=== PATIENT | female | born 1970 | race African-American/Black ===

== ENCOUNTER 2023-07-22 18:17 | Emergency (ER) | payer OTHER ==
--- OUTSIDE RECORDS SUMMARY | 2023-07-22 18:24 | XMS REPORT | Continuity of Care Document ---
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 [facility] Respitory Rate 2018-12-01 15:03:00 [facility] Systolic (mm Hg) 2018-12-01 15:03:00 Jeff rial [place] Diastolic (mm Hg) 2018-12-01 15:03:00 Mem orial [facility] Heart Rate 2018-12-01 15:03:00 [facility] [place] Temperature Oral (F) 2018-12-01 15:03:00 98.8 F [facility] Heart Rate 2018-12-01 10:02:00 [facility] [place] Systolic (mm Hg) 2018-12-01 10:02:00 Jeff rial [place] Diastolic (mm Hg) 2018-12-01 10:02:00 Mem orial [place] Respitory Rate 2018-12-01 10:02:00 [facility] [place] Temperature Oral (F) 2018-12-01 10:02:00 98.2 F [facility] [place] Weight 2018-11-28 07:13:00 [facility] BMI Calculated 2018-11-28 07:13:00 Francoise Singh Height 2018-11-28 07:13:00 160.02 cm [facility] Procedures Procedure Date / Time Performed Performing Clinician Sourtrevor e MAMMO, screening, 2022-07-10 00:00:00 [facility], bilateral [facility] Program Plan of Care Planned Activity Planned Date Details Comments Source Diagnostic Test 2022-10-31 HbA1c (hemoglobin [place] [facility] 00:00:00 A1c), blood [code Health Out reach = HbA1c Program (hemoglobin A1c), blood] Diagnostic Test 2022-10-31 CMP, serum or [facility] Pending 00:00:00 plasma [code = Health Outrea ch CMP, serum or Program plasma] Diagnostic Test 2022-10-31 microalbumin/creat [place] brick tosser [facility] Pending 00:00:00 inine, mass ratio, [facility] urine [code = Program microalbumin/creat inine, mass ratio, urine] Diagnostic Test 2022-10-31 glucose, [facility] iscopal Pending 00:00:00 fingerstick, blood [facility] [code = glucose, Program fingerstick, blood] Encounters Start End Encounter Admission Attending Care Care Encounter Source Date/Time Date/Time Type Type Clinicians Facility Department ID 2023-05-11 2023-05-11 Outpatient Nguyen_Jamieo [facility] [id number] [place] 00:00:00 00:00:00 [facility] 2023-01-19 2023-01-19 Outpatient Nguyen_Tho [facility] [id number] [place] 00:00:00 00:00:00 [facility]12 [facility] 2023-01-19 2023-01-19 Outpatient Ngen_o [facility] [id number] [place] 00:00:00 00:00:00 0502 [facility] 2022-12-15 2022-12-15 Outpatient Nguyen_o [facility] [address] [place] 00:00:00 00:00:00 0205 [facility] 2022-12-12 2022-12-12 Outpatient Nguyen_Tho [facility] [id number] [place] 00:00:00 00:00:00 0202 [facility] 2022-11-29 2022-11-29 Outpatient Nguyen_Tho [facility] [id number] [place] 00:00:00 00:00:00 0120 [facility] 2022-11-22 2022-11-22 Outpatient Nguyen_Tho [facility] [id number] [place] 00:00:00 00:00:00 0113 [facility] 2022-11-10 2022-11-10 Outpatient FERGUSON_JO [facility] 831 [place] 00:00:00 00:00:00 HN 0101 [facility] 2022-11-01 2022-11-01 Outpatient FERGUSON_JO OK[facility]OP [facility] [id number] [place] 00:00:00 00:00:00 HN 1227 [facility] 2022-10-31 2022-10-31 Outpatient FERGUSON_JO OK[facility]OP [facility] 831 [place] 00:00:00 00:00:00 HN 1222 [facility] 2022-10-31 2022-10-31 [facility] [place] - [id number] M [place] 00:00:00 00:00:00 Michael Matthew APRN-ASSISTANT SOFTBALL COACH-C: [facility] 1700 HOP - [facility], [facility], [facility] [address] Progr pili , Ph. 2022-09-03 2022-09-03 Outpatient FERGUSON_JO OKHOP [facility] 831 [place] 00:00:00 00:00:00 HN 1025 [facility] 2022-09-03 2022-09-03 Outpatient FERGUSON_JO OKHOP [facility] 831 [place] 00:00:00 00:00:00 HN 1216 [facility] 2022-08-29 2022-08-29 Outpatient OLIVERIO HAMILTON [facility] [id number] [place] 08:43:00 08:43:00 DAYDAY [id number] [facility] 2022-08-25 2022-08-25 Emergency ER KATHY, [facility] [id number] [place] 21:32:00 22:48:00 NUVIA -[id number] [facility] 2022-08-12 2022-08-12 Outpatient FERGUSON_JO OKHOP [facility] 831 [place] 00:00:00 00:00:00 HN 1003 [facility] 2022-08-12 2022-08-12 Dayday Darby [facility] [place] - [id number] [place] 00:00:00 00:00:00 Michael Hamilton MD: [id number] [facility] Epis copywriter [address] [facility] - [facility] [address], [facility], [facility] Program [phone] , Ph. 2022-08-05 2022-08-05 Outpatient FERGUSON_JO OKHOP [facility] 831 [place] 00:00:00 00:00:00 HN 0926 [facility] 2022-08-02 2022-08-02 Outpatient FERGUSON_JO OKHOP [facility] 831 [place] 00:00:00 00:00:00 HN 0923 [facility] 2022-08-01 2022-08-01 Outpatient FERGUSON_JO OKHOP [facility] 831 [place] 00:00:00 00:00:00 HN 0922 [facility] 2022-08-01 2022-08-01 [facility] [place] - [id number] [place] 00:00:00 00:00:00 Michael Matthew MANAGER SERVICE DESK-ASSISTANT SOFTBALL COACH-C: [facility] [address] [facility] [address] Aurelio alejandre , Ph. 2022-07-24 2022-07-24 Outpatient MILLER AMARAL [facility] [id number] [place] 10:33:00 10:33:00 -[id number] [facility] 2022-07-21 2022-07-21 Outpatient FERGUSON_JO MEHOP MEHOP 831 [place] 00:00:00 00:00:00 HN 0911 [facility] 2022-07-16 2022-07-16 Outpatient FERGUSON_JO MEHOP MEHOP 831 [place] 00:00:00 00:00:00 HN 0906 [facility] 2022-07-11 2022-07-11 Outpatient FERGUSON_JO MEHOP [facility] 831 [place] 00:00:00 00:00:00 HN 0901 [facility] 2022-07-10 2022-07-10 Outpatient FERGUSON_JO MEHOP [facility] 831 [place] 00:00:00 00:00:00 HN 0831 [facility] 2022-07-10 2022-07-10 [facility] [place] - [id number] [place] 00:00:00 00:00:00 Michael Matthew APRN-ASSISTANT SOFTBALL COACH-C: [facility] [address] [facility] [address] Aurelio alejandre , Ph. 2022-06-27 2022-06-27 Outpatient FERGUSON_JO MEHOP [facility] 831 [place] 00:00:00 00:00:00 HN 0818 [facility] 2022-06-13 2022-06-13 Outpatient FERGUSON_JO MEHOP MEHOP 831 [place] 00:00:00 00:00:00 HN 0804 [facility] 2020-05-29 2020-05-29 Emergency ER OWO, TOKS [facility] [id number] [place] 12:53:00 15:11:00 -[id number] [facility] 2018-12-18 2018-12-19 Outpatient [facility] [id number] [id number] Memoria 15:22:00 05:59:00 [place] 00 [facility] 2018-12-18 2018-12-19 Outpatient [facility]Flavo [facility] 4731 [id number] Memoria 15:22:00 05:59:00 [place] 00 [facility] 2018-12-18 2018-12-18 Outpatient Person, [facility] [id number] 09:22:00 23:59:00 Edenilsonjose Flowersel 2018-11-28 2018-12-01 Inpatient [facility] [id number] Memoria 07:13:00 21:00:[address] 2018-11-28 2018-12-01 Inpatient nullFlavo [facility] [id number] [facility] 07:13:00 21:00:[address] 2018-11-28 2018-12-01 Outpatient Person, [facility] [id number] 01:13:00 15:00:00 Edenilson Dagmar Steven 2018-11-27 2018-11-27 Emergency TR WESLEY, [facility] [id number] [place] 20:25:00 23:59:00 SOO -[id number] [facility] 2017-06-19 2017-06-19 Emergency ER OWO, TOKS [facility] [id number] [place] 09:53:00 10:40:00 -[id number] [facility] 2017-05-11 2017-05-11 Emergency ER WESLEY, [facility] [id number] [place] 00:24:00 01:55:00 SOO -[id number] [facility] 2016-11-04 2016-11-04 Emergency ER ROY, [facility] [id number] [place] 11:33:00 12:21:00 WAS -[id number] [facility] 2015-09-10 2015-09-10 Emergency ER , [facility] [id number] [place] 12:14:00 13:05:00 WAS -[id number] [facility] 2015-05-14 2015-05-14 Emergency ER , [facility] [id number] [place] 12:21:00 13:30:00 WAS -[id number] [facility] 2013-03-29 2013-03-29 Emergency ER JANES, [facility] [id number] [place] 15:28:00 17:36:00 KOSTA -[id number] [facility] 2013-01-10 2013-01-10 Emergency ER RADHA, [facility] [id number] [place] 09:58:00 11:14:00 SUSU -[id number] [facility] 2002-10-06 2002-10-06 Outpatient EL RACHAEL, [facility] [id number] [place] 08:13:00 08:13:00 ROSA MARIA -[id number] [facility] 1999-08-27 1999-08-27 Emergency ER JAVI, [facility] [id number] [place] 12:09:00 17:10:00 SOFIA -[id number] [facility] Results Test Description Test Time Test Comments Results Result Comments Source Glucose [Mass/volume] in Capillary blood 2022-10-31 12:43:34 Test Item Value Reference Range Interpretation Comme nts Blood Glucose: mg/dl (test code = Blood Glucose: mg/dl) 115 [facility], [id number] 00:00:00 Test Item Value Reference Range Interpretation Comments Interpretation and review of laboratory note results (test code = 93763-0) Report (test code = 15992-7) . [facility] Centerdiabetes patient [id number] 00:00:00 Test Item Value Reference Range Interpretation Comments pdf (test code = pdf) not applicable [facility] CenterHemoglobin A1c/Hemoglobin.total in [id number] 00:00:00 Test Item Value Reference Range Interpretation Comments Hemoglobin A1c/Hemoglobin.total in 13.9 % 4.8-5.6 H Blood (test code = 4548-4) [facility] CenterGlucose [Mass/volume] in Capillary [id number] 16:02:24 Test Item Value Reference Range Interpretation Comments Blood Glucose: mg/dl (test code = Blood 405 Glucose: mg/dl) [facility] [Mass/volume] in Capillary [id number] 16:02:24 Test Item Value Reference Range Interpretation Comments Blood Glucose: mg/dl (test code = Blood 405 Glucose: mg/dl) [facility] CenterCB W Auto Differential panel - Blood 2022-07-11 00:00:00 Test Item Value Reference Range Interpretation Comments Leukocytes [#/volume] in Blood 4.2 x10e3/uL 3.4-10.8 by Automated count (test code = 6690-2) Erythrocytes [#/volume] in 4.74 x10e6/uL 3.77-5.28 Blood by Automated count (test code = 789-8) Hemoglobin [Mass/volume] in 13.5 g/dL 11.1-15.9 Blood (test code = 718-7) Hematocrit [Volume Fraction] of 42.3 % 34.0-46.6 Blood by Automated count (test code = 4544-3) Erythrocyte mean corpuscular 89 fL 79-97 volume [Entitic volume] by Automated count (test code = 787-2) Erythrocyte mean corpuscular 28.5 pg 26.6-33.0 hemoglobin [Entitic mass] by Automated count (test code = 785-6) Erythrocyte mean corpuscular 31.9 g/dL 31.5-35.7 hemoglobin concentration [Mass/volume] by Automated count (test code = 786-4) Erythrocyte distribution width 12.8 % 11.7-15.4 [Ratio] by Automated count (test code = 788-0) Platelets [#/volume] in Blood 199 x10e3/uL 150-450 by Automated count (test code = 777-3) Neutrophils/100 leukocytes in 49 % not estab. Blood by Automated count (test code = 770-8) Lymphocytes/100 leukocytes in 43 % not estab. Blood by Automated count (test code = 736-9) Monocytes/100 leukocytes in 6 % not estab. Blood by Automated count (test code = 5905-5) Eosinophils/100 leukocytes in 1 % not estab. Blood by Automated count (test code = 713-8) Basophils/100 leukocytes in 1 % not estab. Blood by Automated count (test code = 706-2) immature cells (test code = tare weigher immature cells) Neutrophils [#/volume] in Blood 2.0 x10e3/uL 1.4-7.0 by Automated count (test code = 751-8) Lymphocytes [#/volume] in Blood 1.8 x10e3/uL 0.7-3.1 by Automated count (test code = 731-0) Monocytes [#/volume] in Blood 0.3 x10e3/uL 0.1-0.9 by Automated count (test code = 742-7) Eosinophils [#/volume] in Blood 0.1 x10e3/uL 0.0-0.4 by Automated count (test code = 711-2) Basophils [#/volume] in Blood 0.0 x10e3/uL 0.0-0.2 by Automated count (test code = 704-7) Immature granulocytes/100 0 % not estab. leukocytes in Blood by Automated count (test code = 45238-1) Immature granulocytes 0.0 x10e3/uL 0.0-0.1 [#/volume] in Blood by Automated count (test code = 78967-5) Nucleated erythrocytes/100 tare weigher leukocytes [Ratio] in Blood by Automated count (test code = 21287-4) Morphology [Interpretation] in tare weigher Blood Narrative (test code = 92229-6) [facility] ProgramComprehensive metabolic 2000 panel - Serum or [id number] 00:00:00 Test Item Value Reference Range Interpretation Comments Glucose [Mass/volume] in Serum 524 mg/dL 65-99 H or Plasma (test code = 2345-7) Urea nitrogen [Mass/volume] in 9 mg/dL 6-24 Serum or Plasma (test code = 3094-0) Creatinine [Mass/volume] in 0.97 mg/dL 0.57-1.00 Serum or Plasma (test code = 2160-0) eGFR (test code = eGFR) 70 mL/min/1.73 >59 Urea nitrogen/Creatinine [Mass 9 9-23 Ratio] in Serum or Plasma (test code = 3097-3) Sodium [Moles/volume] in Serum 135 mmol/L 134-144 or Plasma (test code = 2951-2) Potassium [Moles/volume] in 4.1 mmol/L 3.5-5.2 Serum or Plasma (test code = 2823-3) Chloride [Moles/volume] in 95 mmol/L 96-106 L Serum or Plasma (test code = 5-0) Carbon dioxide, total 25 mmol/L 20-29 [Moles/volume] in Serum or Plasma (test code = 2027-9) Calcium [Mass/volume] in Serum 9.9 mg/dL 8.7-10.2 or Plasma (test code = 22839-2) Protein [Mass/volume] in Serum 7.3 g/dL 6.0-8.5 or Plasma (test code = 2885-2) Albumin [Mass/volume] in Serum 4.7 g/dL 3.8-4.9 or Plasma (test code = 1751-7) Globulin [Mass/volume] in 2.6 g/dL 1.5-4.5 Serum by calculation (test code = 97072-7) Albumin/Globulin [Mass Ratio] 1.8 1.2-2.2 in Serum or Plasma (test code = 1759-0) Bilirubin.total [Mass/volume] 0.4 mg/dL 0.0-1.2 in Serum or Plasma (test code = 1974-2) Alkaline phosphatase 146 IU/L 44-121 H [Enzymatic activity/volume] in Serum or Plasma (test code = 6768-6) Aspartate aminotransferase 28 IU/L 0-40 [Enzymatic activity/volume] in Serum or Plasma (test code = 1920-8) Alanine aminotransferase 51 IU/L 0-32 H [Enzymatic activity/volume] in Serum or Plasma (test code = 1742-6) [facility] Center[facility] 1996 panel - Serum or Plasma 2022-07-11 00:00:00 Test Item Value Reference Range Interpretation Comments Cholesterol [Mass/volume] in Serum 182 mg/dL 100-199 or Plasma (test code = 3-3) Triglyceride [Mass/volume] in Serum 123 mg/dL 0-149 or Plasma (test code = 2571-8) Cholesterol in HDL [Mass/volume] in 57 mg/dL >39 Serum or Plasma (test code = 2085-9) Cholesterol in VLDL [Mass/volume] 22 mg/dL 5-40 in Serum or Plasma by calculation (test code = 87109-1) Cholesterol in LDL [Mass/volume] in 103 mg/dL 0-99 H Serum or Plasma by calculation (test code = 22005-5) Laboratory comment [Text] in Report tare weigher Narrative (test code = 12095-3) [facility]25-Hydroxyvitamin D3+25- Hydroxyvitamin D2 [Mass/volume] in Serum or [id number] 00:00:00 Test Item Value Reference Range Interpretation Comments 25-Hydroxyvitamin 14.2 NG/mL 30.0-100.0 L D3+25-Hydroxyvitamin D2 [Mass/volume] in Serum or Plasma (test code = 69918-9) [facility] CenterThyrotropin [Units/volume] in Serum or Plasma by Detection limit <= 0.005 mIU/[id number] 00:00:00 Test Item Value Reference Range Interpretation Comments Thyrotropin [Units/volume] in 0.957 uIU/mL 0.450-4.500 Serum or Plasma by Detection limit <= 0.005 mIU/L (test code = 86311-9) [facility] CenterInsulin [Units/volume] in Serum or [id number] 00:00:00 Test Item Value Reference Range Interpretation Comments Insulin [Units/volume] in Serum 23.8 uIU/mL 2.6-24.9 or Plasma (test code = 42751-2) [facility] CenterUrinalysis macro (dipstick) panel - [id number] 17:12:40 Test Item Value Reference Range Interpretation Comments Leukocytes (test code = Leukocytes) - Nitrite (test code = Nitrite) - Urobilinogen (test code = - Urobilinogen) Protein (test code = Protein) - pH (test code = pH) 7.0 Blood (test code = Blood) - Specific [place] (test code = Specific 1.015 [place]) Ketone (test code = Ketone) - Bilirubin (test code = Bilirubin) - Glucose (test code = Glucose) 3+ Appearance (test code = Appearance) clear Color (test code = Color) yellow [facility] CenterUrinalysis macro (dipstick) panel - [id number] 17:12:40 Test Item Value Reference Range Interpretation Comments Leukocytes (test code = Leukocytes) - Nitrite (test code = Nitrite) - Urobilinogen (test code = - Urobilinogen) Protein (test code = Protein) - pH (test code = pH) 7.0 Blood (test code = Blood) - Specific [place] (test code = Specific 1.015 [place]) Ketone (test code = Ketone) - Bilirubin (test code = Bilirubin) - Glucose (test code = Glucose) 3+ Appearance (test code = Appearance) clear Color (test code = Color) yellow [facility] CenterCHEM [id number] 11:32:00 Test Item Value Reference Range Interpretation Comments eGFR (test code = eGFR) 96 [facility]2019-01-21 11:32:00 Test Item Value Reference Range Interpretation Comments CO2 (test code = CO2) 25 24-32 [facility]2019-01-21 11:32:00 Test Item Value Reference Range Interpretation Comments Chloride Lvl (test code = Chloride Lvl) 106 95-109 [facility]2019-01-21 11:32:00 Test Item Value Reference Range Interpretation Comments Calcium Lvl (test code = Calcium Lvl) 8.7 8.5-10.5 [facility]2019-01-21 11:32:00 Test Item Value Reference Range Interpretation Comments BUN (test code = BUN) 6 7-22 [facility]2019-01-21 11:32:00 Test Item Value Reference Range Interpretation Comments Glucose Lvl (test code = Glucose Lvl) 98 70-99 [facility]2019-01-21 11:32:00 Test Item Value Reference Range Interpretation Comments Potassium Lvl (test code = Potassium 3.6 3.5-5.1 Lvl) [facility]2019-01-21 11:32:00 Test Item Value Reference Range Interpretation Comments Creatinine Lvl (test code = Creatinine 0.83 0.50-1.40 Lvl) [facility]2019-01-21 11:32:00 Test Item Value Reference Range Interpretation Comments Sodium Lvl (test code = Sodium Lvl) 141 135-145 [facility]2019-01-21 11:32:00 Test Item Value Reference Range Interpretation Comments AGAP (test code = AGAP) 13.6 10.0-20.0 [facility] CenterIaghlgpBDQGBKLGLF2733-54-35 11:32:00 Test Item Value Reference Range Interpretation Comments MPV (test code = MPV) 8.3 7.4-10.4 [facility]2019-01-21 11:32:00 Test Item Value Reference Range Interpretation Comments eGFR (test code = eGFR) 96 [facility]2019-01-21 11:32:00 Test Item Value Reference Range Interpretation Comments CO2 (test code = CO2) 25 24-32 [facility]2019-01-21 11:32:00 Test Item Value Reference Range Interpretation Comments Chloride Lvl (test code = Chloride Lvl) 106 95-109 [facility]2019-01-21 11:32:00 Test Item Value Reference Range Interpretation Comments Calcium Lvl (test code = Calcium Lvl) 8.7 8.5-10.5 [facility]2019-01-21 11:32:00 Test Item Value Reference Range Interpretation Comments BUN (test code = BUN) 6 7-22 [facility]2019-01-21 11:32:00 Test Item Value Reference Range Interpretation Comments Glucose Lvl (test code = Glucose Lvl) 98 70-99 [facility] CenterGaxaruwFYMGLZRIUA7673-46-14 11:32:00 Test Item Value Reference Range Interpretation Comments RDW (test code = RDW) 14.2 11.5-14.5 [facility]2019-01-21 11:32:00 Test Item Value Reference Range Interpretation Comments Potassium Lvl (test code = Potassium 3.6 3.5-5.1 Lvl) [facility]2019-01-21 11:32:00 Test Item Value Reference Range Interpretation Comments Creatinine Lvl (test code = Creatinine 0.83 0.50-1.40 Lvl) [facility]2019-01-21 11:32:00 Test Item Value Reference Range Interpretation Comments Sodium Lvl (test code = Sodium Lvl) 141 135-145 [facility]2019-01-21 11:32:00 Test Item Value Reference Range Interpretation Comments AGAP (test code = AGAP) 13.6 10.0-20.0 [facility] CenterSwvbcomKMVIOEXQSI5492-14-92 11:32:00 Test Item Value Reference Range Interpretation Comments MPV (test code = MPV) 8.3 7.4-10.4 [facility] CenterShoobqdPRZXRXHLPV0588-71-69 11:32:00 Test Item Value Reference Range Interpretation Comments RDW (test code = RDW) 14.2 11.5-14.5 [facility] CenterWutdgdlGWOLTEVNIT7975-46-56 11:32:00 Test Item Value Reference Range Interpretation Comments Platelet (test code = Platelet) 165 133450 [facility] CenterDtkkzkySJASEZSYFQ9510-43-57 11:32:00 Test Item Value Reference Range Interpretation Comments MCH (test code = MCH) 29.5 pg 27.0-31.0 [facility] CenterNjmsuhyPGWLZVXYLR1734-52-70 11:32:00 Test Item Value Reference Range Interpretation Comments MCHC (test code = MCHC) 33.6 32.0-36.0 [facility] CenterEaprerfPFYDTHHYJU0362-89-32 11:32:00 Test Item Value Reference Range Interpretation Comments Hct (test code = Hct) 34.7 36.0-48.0 [facility] CenterSytidzbFWNZVFWDXY0079-95-50 11:32:00 Test Item Value Reference Range Interpretation Comments Platelet (test code = Platelet) 165 133450 [facility] CenterOeccouuADURCKPJHF3458-62-79 11:32:00 Test Item Value Reference Range Interpretation Comments MCV (test code = MCV) 87.9 80.0-98.0 [facility] CenterJuhakmfCIWMPPBWNH0217-45-97 11:32:00 Test Item Value Reference Range Interpretation Comments WBC (test code = WBC) 6.4 3.7-10.4 [facility] CenterLrplvkyCPOGENKEBR3744-60-53 11:32:00 Test Item Value Reference Range Interpretation Comments RBC (test code = RBC) 3.94 4.20-5.40 [facility] CenterRmnodjqSELNJJKYQS8676-95-77 11:32:00 Test Item Value Reference Range Interpretation Comments Hgb (test code = Hgb) 11.6 12.0-16.0 [facility] CenterPmpnvgwUWYYTRJBJO7275-53-79 11:32:00 Test Item Value Reference Range Interpretation Comments Neutrophils # (test code = Neutrophils 4.5 1.5-8.1 #) [facility] CenterAhxjybtVIRTJKNHIP9738-85-81 11:32:00 Test Item Value Reference Range Interpretation Comments Eosinophils (test code = 0.9 See_Comment [A utomated message] The Eosinophils) system which ge nerated this result tra nsmitted reference range : <=4.0. The reference r randi was not used to int erpret this result as normal/abnormal . [facility] CenterUckraxpMEUEFDNWXN7742-60-97 11:32:00 Test Item Value Reference Range Interpretation Comments Basophils (test code = 0.5 See_Comment [Aut omated message] The Basophils) system which ge nerated this result tra nsmitted reference range : <=1.0. The reference r randi was not used to int erpret this result as normal/abnormal . [facility] CenterCasbccoKHAKLCTZND4278-69-53 11:32:00 Test Item Value Reference Range Interpretation Comments Segs (test code = Segs) 69.2 45.0-75.0 [facility] CenterIfunbtnXNIFWPGSPK7444-25-67 11:32:00 Test Item Value Reference Range Interpretation Comments Lymphocytes (test code = Lymphocytes) 22.4 20.0-40.0 [facility] CenterFvqjgfcMILNPCHSHV7149-15-75 11:32:00 Test Item Value Reference Range Interpretation Comments Monocytes (test code = Monocytes) 7.0 2.0-12.0 [facility] CenterKjgvoulVQMHKTBOFA8355-45-64 11:32:00 Test Item Value Reference Range Interpretation Comments MCH (test code = MCH) 29.5 pg 27.0-31.0 [facility] CenterQlnhoxzXRTLZNGUSS4034-27-77 11:32:00 Test Item Value Reference Range Interpretation Comments Monocytes # (test code 0.4 See_Comment [Aut omated message] The = Monocytes #) system which generated this result tra nsmitted reference range : <=0.8. The reference r randi was not used to int erpret this result as normal/abnormal . [facility] CenterAjjlozsBZQHKZSGIC9802-09-31 11:32:00 Test Item Value Reference Range Interpretation Comments Eosinophils # (test code 0.1 See_Comment [A utomated message] The = Eosinophils #) system whic h generated this result tra nsmitted reference range : <=0.5. The reference r randi was not used to int erpret this result as normal/abnormal . [facility] CenterRuxsxazQDKABMERTD2110-12-08 11:32:00 Test Item Value Reference Range Interpretation Comments Lymphocytes # (test code = Lymphocytes 1.4 1.0-5.5 #) [facility] CenterDpmvifdLWMHTFCIIL8444-31-12 11:32:00 Test Item Value Reference Range Interpretation Comments MCHC (test code = MCHC) 33.6 32.0-36.0 [facility] CenterHkpvokjLNQTEQZTLU8681-43-72 11:32:00 Test Item Value Reference Range Interpretation Comments Hct (test code = Hct) 34.7 36.0-48.0 [facility] CenterEirowbiAHLSHRBMOD2688-47-61 11:32:00 Test Item Value Reference Range Interpretation Comments MCV (test code = MCV) 87.9 80.0-98.0 [facility] CenterOmnzbrmCTHEKTNZPJ7079-59-92 11:32:00 Test Item Value Reference Range Interpretation Comments WBC (test code = WBC) 6.4 3.7-10.4 [facility] CenterIsjmhplRQDXZMKOLL2696-60-51 11:32:00 Test Item Value Reference Range Interpretation Comments RBC (test code = RBC) 3.94 4.20-5.40 [facility] CenterKntqrkwTFHAFXTTKX1363-68-01 11:32:00 Test Item Value Reference Range Interpretation Comments Hgb (test code = Hgb) 11.6 12.0-16.0 [facility] CenterZhrhxddDMRELGDPOS1326-85-18 11:32:00 Test Item Value Reference Range Interpretation Comments Neutrophils # (test code = Neutrophils 4.5 1.5-8.1 #) [facility] CenterQinshvtCBTPVIFYDB5470-36-42 11:32:00 Test Item Value Reference Range Interpretation Comments Eosinophils (test code = 0.9 See_Comment [A utomated message] The Eosinophils) system which ge nerated this result tra nsmitted reference range : <=4.0. The reference r randi was not used to int erpret this result as normal/abnormal . [facility] CenterMcinvnaKFKQKVWZZU0799-57-95 11:32:00 Test Item Value Reference Range Interpretation Comments Basophils (test code = 0.5 See_Comment [Aut omated message] The Basophils) system which ge nerated this result tra nsmitted reference range : <=1.0. The reference r randi was not used to int erpret this result as normal/abnormal . [facility] CenterRlsrqdrQZGKAQCVSS8338-25-65 11:32:00 Test Item Value Reference Range Interpretation Comments Segs (test code = Segs) 69.2 45.0-75.0 [facility] CenterDvngmuaGZCXIUKLUO1617-43-53 11:32:00 Test Item Value Reference Range Interpretation Comments Lymphocytes (test code = Lymphocytes) 22.4 20.0-40.0 [facility] CenterMiqvdqaOKKYKAVFMF5683-16-47 11:32:00 Test Item Value Reference Range Interpretation Comments Monocytes (test code = Monocytes) 7.0 2.0-12.0 [facility] CenterGreaoztGGDBCKLHIV2240-16-85 11:32:00 Test Item Value Reference Range Interpretation Comments Monocytes # (test code 0.4 See_Comment [Aut omated message] The = Monocytes #) system which generated this result tra nsmitted reference range : <=0.8. The reference r randi was not used to int erpret this result as normal/abnormal . [facility] CenterYmxvxgnZAIAHUUTTQ1242-05-54 11:32:00 Test Item Value Reference Range Interpretation Comments Eosinophils # (test code 0.1 See_Comment [A utomated message] The = Eosinophils #) system whic h generated this result tra nsmitted reference range : <=0.5. The reference r randi was not used to int erpret this result as normal/abnormal . [facility] CenterMfihcvwHONASWEKFK8822-67-17 11:32:00 Test Item Value Reference Range Interpretation Comments Lymphocytes # (test code = Lymphocytes 1.4 1.0-5.5 #) [facility] CenterGrkfhpfFVNSYTONAT5637-59-00 06:27:00 Test Item Value Reference Range Interpretation Comments INR (test code = INR) 1.11 1 0.85-1.17 [facility]2019-01-20 06:27:00 Test Item Value Reference Range Interpretation Comments BUN (test code = BUN) 7 7-22 [facility]2019-01-20 06:27:00 Test Item Value Reference Range Interpretation Comments Creatinine Lvl (test code = Creatinine 0.88 0.50-1.40 Lvl) [facility]2019-01-20 06:27:00 Test Item Value Reference Range Interpretation Comments Glucose Lvl (test code = Glucose Lvl) 133 70-99 [facility]2019-01-20 06:27:00 Test Item Value Reference Range Interpretation Comments eGFR (test code = eGFR) 89 [facility]2019-01-20 06:27:00 Test Item Value Reference Range Interpretation Comments CO2 (test code = CO2) 26 24-32 [facility]2019-01-20 06:27:00 Test Item Value Reference Range Interpretation Comments Calcium Lvl (test code = Calcium Lvl) 8.4 8.5-10.5 [facility]2019-01-20 06:27:00 Test Item Value Reference Range Interpretation Comments Chloride Lvl (test code = Chloride Lvl) 106 95-109 [facility]2019-01-20 06:27:00 Test Item Value Reference Range Interpretation Comments Sodium Lvl (test code = Sodium Lvl) 141 135-145 [facility]2019-01-20 06:27:00 Test Item Value Reference Range Interpretation Comments Potassium Lvl (test code = Potassium 4.0 3.5-5.1 Lvl) [facility]2019-01-20 06:27:00 Test Item Value Reference Range Interpretation Comments AGAP (test code = AGAP) 13.0 10.0-20.0 [facility] CenterVwlljrhDVXFRXCNRC2471-88-71 06:27:00 Test Item Value Reference Range Interpretation Comments MCV (test code = MCV) 90.0 80.0-98.0 [facility] CenterOxqhkmtOXSSPKAAIL4608-16-16 06:27:00 Test Item Value Reference Range Interpretation Comments WBC (test code = WBC) 5.6 3.7-10.4 [facility] CenterGcgdokbACYRVVVRPR0166-85-99 06:27:00 Test Item Value Reference Range Interpretation Comments Hgb (test code = Hgb) 11.1 12.0-16.0 [facility] CenterYhzytbpAGDVTWZQMV8767-26-28 06:27:00 Test Item Value Reference Range Interpretation Comments RBC (test code = RBC) 3.53 4.20-5.40 [facility] CenterPcflackWHDXQBULGN8516-17-41 06:27:00 Test Item Value Reference Range Interpretation Comments MCHC (test code = MCHC) 35.1 32.0-36.0 [facility] CenterFbwdzloFDYKYZMJEA6811-73-79 06:27:00 Test Item Value Reference Range Interpretation Comments RDW (test code = RDW) 14.2 11.5-14.5 [facility] CenterXlqeujmOORFJIMCKC5235-04-61 06:27:00 Test Item Value Reference Range Interpretation Comments MCH (test code = MCH) 31.6 pg 27.0-31.0 [facility] CenterWvbhccuAVETIQOYET3638-67-77 06:27:00 Test Item Value Reference Range Interpretation Comments Hct (test code = Hct) 31.7 36.0-48.0 [facility] CenterAooxzcoWJLOUYRUEV3475-46-70 06:27:00 Test Item Value Reference Range Interpretation Comments MPV (test code = MPV) 8.1 7.4-10.4 [facility] CenterUfgykqiFEODFQKMWW7142-98-19 06:27:00 Test Item Value Reference Range Interpretation Comments Platelet (test code = Platelet) 178 133-450 [facility] CenterQuwbrtxLJZNIGGQHZ8806-50-53 06:27:00 Test Item Value Reference Range Interpretation Comments Lymphocytes # (test code = Lymphocytes 1.1 1.0-5.5 #) [facility] CenterVzilrmdFHGOPNEQRW9214-42-52 06:27:00 Test Item Value Reference Range Interpretation Comments Monocytes # (test code 0.4 See_Comment [Aut omated message] The = Monocytes #) system which generated this result tra nsmitted reference range : <=0.8. The reference r randi was not used to int erpret this result as normal/abnormal . [facility] CenterYteqanxNFISRBEKZA8860-30-56 06:27:00 Test Item Value Reference Range Interpretation Comments Basophils (test code = 0.2 See_Comment [Aut omated message] The Basophils) system which ge nerated this result tra nsmitted reference range : <=1.0. The reference r randi was not used to int erpret this result as normal/abnormal . [facility] CenterLwkhntrENRKDWSYIK2293-07-67 06:27:00 Test Item Value Reference Range Interpretation Comments Neutrophils # (test code = Neutrophils 4.0 1.5-8.1 #) [facility] CenterDsebgplMHFVHBVGSC9415-36-63 06:27:00 Test Item Value Reference Range Interpretation Comments Eosinophils (test code = 0.8 See_Comment [A utomated message] The Eosinophils) system which ge nerated this result tra nsmitted reference range : <=4.0. The reference r randi was not used to int erpret this result as normal/abnormal . [facility] CenterRzigwjrGHCMAMKXHR1186-62-30 06:27:00 Test Item Value Reference Range Interpretation Comments Lymphocytes (test code = Lymphocytes) 19.1 20.0-40.0 [facility] CenterMwixmflLBSAIOLGRP7561-13-76 06:27:00 Test Item Value Reference Range Interpretation Comments Monocytes (test code = Monocytes) 7.6 2.0-12.0 [facility] CenterCmplluaNFWPAUGGOH9008-66-04 06:27:00 Test Item Value Reference Range Interpretation Comments Segs (test code = Segs) 72.3 45.0-75.0 [facility] CenterQhsnmrgVSWLWSGODT7358-59-20 06:27:00 Test Item Value Reference Range Interpretation Comments PTT (test code = PTT) 29.4 s 22.9-35.8 [facility] CenterJegdoamMPGPBAHXXP1816-16-42 06:27:00 Test Item Value Reference Range Interpretation Comments PT (test code = PT) 14.1 s 12.0-14.7 [facility]2019-01-20 06:27:00 Test Item Value Reference Range Interpretation Comments BUN (test code = BUN) 7 7-22 [facility]2019-01-20 06:27:00 Test Item Value Reference Range Interpretation Comments Creatinine Lvl (test code = Creatinine 0.88 0.50-1.40 Lvl) [facility]2019-01-20 06:27:00 Test Item Value Reference Range Interpretation Comments Glucose Lvl (test code = Glucose Lvl) 133 70-99 [facility]2019-01-20 06:27:00 Test Item Value Reference Range Interpretation Comments eGFR (test code = eGFR) 89 [facility]2019-01-20 06:27:00 Test Item Value Reference Range Interpretation Comments CO2 (test code = CO2) 26 24-32 [facility]2019-01-20 06:27:00 Test Item Value Reference Range Interpretation Comments Calcium Lvl (test code = Calcium Lvl) 8.4 8.5-10.5 [facility]2019-01-20 06:27:00 Test Item Value Reference Range Interpretation Comments Chloride Lvl (test code = Chloride Lvl) 106 95-109 [facility]2019-01-20 06:27:00 Test Item Value Reference Range Interpretation Comments Sodium Lvl (test code = Sodium Lvl) 141 135-145 [facility]2019-01-20 06:27:00 Test Item Value Reference Range Interpretation Comments Potassium Lvl (test code = Potassium 4.0 3.5-5.1 Lvl) [facility]2019-01-20 06:27:00 Test Item Value Reference Range Interpretation Comments AGAP (test code = AGAP) 13.0 10.0-20.0 [facility] CenterJfgssulZJWDNIJCCI5525-09-73 06:27:00 Test Item Value Reference Range Interpretation Comments MCV (test code = MCV) 90.0 80.0-98.0 [facility] CenterEsvxtlvBVWSVFNUJV8448-42-11 06:27:00 Test Item Value Reference Range Interpretation Comments WBC (test code = WBC) 5.6 3.7-10.4 [facility] CenterYohlvlsGPIGLTCRLH9435-13-53 06:27:00 Test Item Value Reference Range Interpretation Comments Hgb (test code = Hgb) 11.1 12.0-16.0 [facility] CenterEftqdubMHUBOYEYGG9819-06-03 06:27:00 Test Item Value Reference Range Interpretation Comments RBC (test code = RBC) 3.53 4.20-5.40 [facility] CenterBezldrhILQIMPRTKQ5836-55-48 06:27:00 Test Item Value Reference Range Interpretation Comments MCHC (test code = MCHC) 35.1 32.0-36.0 [facility] CenterQqugavoCJGLGBQHQA3006-08-84 06:27:00 Test Item Value Reference Range Interpretation Comments RDW (test code = RDW) 14.2 11.5-14.5 [facility] CenterIyavjmbNHSFAEGTDB6308-34-70 06:27:00 Test Item Value Reference Range Interpretation Comments MCH (test code = MCH) 31.6 pg 27.0-31.0 [facility] CenterDqskauaIJCOMJZIPW4077-97-07 06:27:00 Test Item Value Reference Range Interpretation Comments Hct (test code = Hct) 31.7 36.0-48.0 [facility] CenterLrlqppyNVKLGKJCZV5338-63-73 06:27:00 Test Item Value Reference Range Interpretation Comments MPV (test code = MPV) 8.1 7.4-10.4 [facility] CenterZicvfeiXQZSFCNMMU7990-03-72 06:27:00 Test Item Value Reference Range Interpretation Comments Platelet (test code = Platelet) 178 133-450 [facility] CenterEwkovzaPAGQSZPDFD0634-81-11 06:27:00 Test Item Value Reference Range Interpretation Comments Lymphocytes # (test code = Lymphocytes 1.1 1.0-5.5 #) [facility] CenterYlfibclNIZIDHRRLV4487-80-63 06:27:00 Test Item Value Reference Range Interpretation Comments Monocytes # (test code 0.4 See_Comment [Aut omated message] The = Monocytes #) system which generated this result tra nsmitted reference range : <=0.8. The reference r randi was not used to int erpret this result as normal/abnormal . [facility] CenterKtfskbrJBWJRDRGVK3362-45-60 06:27:00 Test Item Value Reference Range Interpretation Comments Basophils (test code = 0.2 See_Comment [Aut omated message] The Basophils) system which ge nerated this result tra nsmitted reference range : <=1.0. The reference r randi was not used to int erpret this result as normal/abnormal . [facility] CenterSbqluzaBKQVMEHZFY8721-67-08 06:27:00 Test Item Value Reference Range Interpretation Comments Neutrophils # (test code = Neutrophils 4.0 1.5-8.1 #) [facility] CenterRsjdxrgFQJZYBRXHO8605-38-01 06:27:00 Test Item Value Reference Range Interpretation Comments Eosinophils (test code = 0.8 See_Comment [A utomated message] The Eosinophils) system which ge nerated this result tra nsmitted reference range : <=4.0. The reference r randi was not used to int erpret this result as normal/abnormal . [facility] CenterHbopnppTSDELPAHME8317-35-03 06:27:00 Test Item Value Reference Range Interpretation Comments Lymphocytes (test code = Lymphocytes) 19.1 20.0-40.0 [facility] CenterHxrxifjTKTLAXPNKF5353-48-92 06:27:00 Test Item Value Reference Range Interpretation Comments Monocytes (test code = Monocytes) 7.6 2.0-12.0 [facility] CenterMfphbfzXJMKPKGRCB3883-23-85 06:27:00 Test Item Value Reference Range Interpretation Comments Segs (test code = Segs) 72.3 45.0-75.0 [facility] CenterDdccnrdXAFVEESIHI2413-28-08 06:27:00 Test Item Value Reference Range Interpretation Comments PTT (test code = PTT) 29.4 s 22.9-35.8 [facility] CenterUkumnxiYNZKUTFOCC9594-40-29 06:27:00 Test Item Value Reference Range Interpretation Comments PT (test code = PT) 14.1 s 12.0-14.7 [facility] CenterYjhublzIGGOWIVNXU3159-68-60 06:27:00 Test Item Value Reference Range Interpretation Comments INR (test code = INR) 1.11 1 0.85-1.17 [facility] CenterYeglpjbQBHMFSVQZT4063-96-87 19:55:00 Test Item Value Reference Range Interpretation Comments MCHC (test code = MCHC) 33.2 32.0-36.0 [facility] CenterLwtzbugROHISLNSJC7141-14-03 19:55:00 Test Item Value Reference Range Interpretation Comments MCH (test code = MCH) 28.9 pg 27.0-31.0 [facility] CenterGmdimvfOXQUUGNWHV5597-00-69 19:55:00 Test Item Value Reference Range Interpretation Comments MCV (test code = MCV) 87.1 80.0-98.0 [facility] CenterRatkwnaWTTLRYPVKW9422-08-41 19:55:00 Test Item Value Reference Range Interpretation Comments Hct (test code = Hct) 33.8 36.0-48.0 [facility] CenterCuibcgzYQQKWRSPLX0933-14-23 19:55:00 Test Item Value Reference Range Interpretation Comments Hgb (test code = Hgb) 11.2 12.0-16.0 [facility] CenterEoqflweNDXGYRIHKK2863-87-08 19:55:00 Test Item Value Reference Range Interpretation Comments RBC (test code = RBC) 3.88 4.20-5.40 [facility] CenterRtekvkdOWYYIUEPID6792-97-70 19:55:00 Test Item Value Reference Range Interpretation Comments WBC (test code = WBC) 7.9 3.7-10.4 [facility]2019-01-19 19:55:00 Test Item Value Reference Range Interpretation Comments Lactic Acid Lvl (test code = Lactic 1.1 0.5-2.2 Acid Lvl) [facility]2019-01-19 19:55:00 Test Item Value Reference Range Interpretation Comments Lactic Acid Lvl (test code = Lactic 1.1 0.5-2.2 Acid Lvl) [facility] CenterZipxaogIYHDHAXHOV2349-28-43 19:55:00 Test Item Value Reference Range Interpretation Comments Basophils (test code = 0.5 See_Comment [Aut omated message] The Basophils) system which ge nerated this result tra nsmitted reference range : <=1.0. The reference r randi was not used to int erpret this result as normal/abnormal . [facility] CenterTqlojfdZEESMYIRMR1979-32-37 19:55:00 Test Item Value Reference Range Interpretation Comments Eosinophils (test code = 0.2 See_Comment [A utomated message] The Eosinophils) system which ge nerated this result tra nsmitted reference range : <=4.0. The reference r randi was not used to int erpret this result as normal/abnormal . [facility] CenterTdldtnoBIBPOTSCED0734-44-63 19:55:00 Test Item Value Reference Range Interpretation Comments Monocytes (test code = Monocytes) 6.3 2.0-12.0 [facility] CenterXhzqtqbFHLDPESGYV6412-14-21 19:55:00 Test Item Value Reference Range Interpretation Comments Lymphocytes (test code = Lymphocytes) 10.2 20.0-40.0 [facility] CenterBdxquqdFCCYKONQIW5338-45-63 19:55:00 Test Item Value Reference Range Interpretation Comments Segs (test code = Segs) 82.8 45.0-75.0 [facility] CenterSyjmwojXDXUPQFQCI8640-93-75 19:55:00 Test Item Value Reference Range Interpretation Comments Monocytes # (test code 0.5 See_Comment [Aut omated message] The = Monocytes #) system which generated this result tra nsmitted reference range : <=0.8. The reference r randi was not used to int erpret this result as normal/abnormal . [facility] CenterHsloesbHMNXTCGPQU7159-67-59 19:55:00 Test Item Value Reference Range Interpretation Comments Lymphocytes # (test code = Lymphocytes 0.8 1.0-5.5 #) [facility] CenterUmnrbmxQUGGTQDQRY9476-27-93 19:55:00 Test Item Value Reference Range Interpretation Comments Neutrophils # (test code = Neutrophils 6.5 1.5-8.1 #) [facility] CenterCgqahqhKYMWOEUOVD0671-62-64 19:55:00 Test Item Value Reference Range Interpretation Comments MPV (test code = MPV) 8.3 7.4-10.4 [facility] CenterYneezstBELTKZBZVM6175-43-28 19:55:00 Test Item Value Reference Range Interpretation Comments Platelet (test code = Platelet) 180 133-450 [facility] CenterBmrmpfuXNPLFCWATC0101-16-98 19:55:00 Test Item Value Reference Range Interpretation Comments RDW (test code = RDW) 14.0 11.5-14.5 [facility] CenterDgtsfhsAIEPUVFPFJ4255-56-61 19:55:00 Test Item Value Reference Range Interpretation Comments MCHC (test code = MCHC) 33.2 32.0-36.0 [facility] CenterSdwlcbfXOWRSFJQAH3223-17-77 19:55:00 Test Item Value Reference Range Interpretation Comments MCH (test code = MCH) 28.9 pg 27.0-31.0 [facility] CenterSvrhsggZECZAKVTLA3890-50-65 19:55:00 Test Item Value Reference Range Interpretation Comments MCV (test code = MCV) 87.1 80.0-98.0 [facility] CenterNaiqxffBAYJELQWNO7060-23-97 19:55:00 Test Item Value Reference Range Interpretation Comments Hct (test code = Hct) 33.8 36.0-48.0 [facility] CenterYmgjuowUDLABUFVTG7245-04-54 19:55:00 Test Item Value Reference Range Interpretation Comments Hgb (test code = Hgb) 11.2 12.0-16.0 [facility] CenterKvkesiuKHEYPLMIGG5573-50-56 19:55:00 Test Item Value Reference Range Interpretation Comments RBC (test code = RBC) 3.88 4.20-5.40 [facility] CenterGvzslmcOYQYBKGBHZ3822-60-38 19:55:00 Test Item Value Reference Range Interpretation Comments WBC (test code = WBC) 7.9 3.7-10.4 [facility] CenterWsgldlzGMHBZXKNTT0932-01-43 19:55:00 Test Item Value Reference Range Interpretation Comments Basophils (test code = 0.5 See_Comment [Aut omated message] The Basophils) system which ge nerated this result tra nsmitted reference range : <=1.0. The reference r randi was not used to int erpret this result as normal/abnormal . [facility] CenterEpxdqomRDNJCFDNUM3113-23-78 19:55:00 Test Item Value Reference Range Interpretation Comments Eosinophils (test code = 0.2 See_Comment [A utomated message] The Eosinophils) system which ge nerated this result tra nsmitted reference range : <=4.0. The reference r randi was not used to int erpret this result as normal/abnormal . [facility] CenterFhswwqoOOGWZFVLXQ5411-52-03 19:55:00 Test Item Value Reference Range Interpretation Comments Monocytes (test code = Monocytes) 6.3 2.0-12.0 [facility] CenterDpplfkjPKYACJMMUQ0994-81-67 19:55:00 Test Item Value Reference Range Interpretation Comments Lymphocytes (test code = Lymphocytes) 10.2 20.0-40.0 [facility] CenterUjkxbszFZGPVSUGST3891-84-45 19:55:00 Test Item Value Reference Range Interpretation Comments Segs (test code = Segs) 82.8 45.0-75.0 [facility] CenterWzckbukBJBFIYXDHN6635-37-88 19:55:00 Test Item Value Reference Range Interpretation Comments Monocytes # (test code 0.5 See_Comment [Aut omated message] The = Monocytes #) system which generated this result tra nsmitted reference range : <=0.8. The reference r randi was not used to int erpret this result as normal/abnormal . [facility] CenterKmzcxwiDTFVZVGQJQ2099-85-37 19:55:00 Test Item Value Reference Range Interpretation Comments Lymphocytes # (test code = Lymphocytes 0.8 1.0-5.5 #) [facility] CenterTynqatcZYDLTFYAWF7402-83-28 19:55:00 Test Item Value Reference Range Interpretation Comments Neutrophils # (test code = Neutrophils 6.5 1.5-8.1 #) [facility] CenterCjiziiwJMCYYGJRXB6408-38-58 19:55:00 Test Item Value Reference Range Interpretation Comments MPV (test code = MPV) 8.3 7.4-10.4 [facility] CenterOndwipqSIKRDJYTDJ6118-81-94 19:55:00 Test Item Value Reference Range Interpretation Comments Platelet (test code = Platelet) 180 133-450 [facility] CenterAxepoixJGESDWBJHP7117-00-19 19:55:00 Test Item Value Reference Range Interpretation Comments RDW (test code = RDW) 14.0 11.5-14.5 [facility] ATOYEK4491[facility]16[facility]48 11:35:00 Test Item Value Reference Range Interpretation Comments U Amph Scr (test code Negative *NA*(11/28/18 = U Amph Scr) 5:35 AM) [facility] PSOWTE6913-49-65 11:35:00 Test Item Value Reference Range Interpretation Comments U Eve Scr (test code Negative *NA*(11/28/18 = U Eve Scr) 5:35 AM) [facility] VBRYJB9474-08-05 11:35:00 Test Item Value Reference Range Interpretation Comments UDS Note (test code = See Note (11/28/18 5:35 UDS Note) AM) [facility] HNDENF7187[facility]52-57 11:35:00 Test Item Value Reference Range Interpretation Comments U Opiate Scr (test Positive *ABN*(11/28/18 code = U Opiate Scr) 5:35 AM) [facility] QMVMYE2873-11-23 11:35:00 Test Item Value Reference Range Interpretation Comments U Phencyclidine Scr (test Negative code = U Phencyclidine *NA*(11/28/18 5:35 Scr) AM) [facility] [id number] 11:35:00 Test Item Value Reference Range Interpretation Comments U Benzodiaz Scr (test Negative *NA*(11/28/18 code = U Benzodiaz Scr) 5:35 AM) [facility] [id number] 11:35:00 Test Item Value Reference Range Interpretation Comments U Cocaine Scr (test Negative *NA*(11/28/18 code = U Cocaine Scr) 5:35 AM) [facility] [id number] 11:35:00 Test Item Value Reference Range Interpretation Comments U Cannab Scr (test Negative *NA*(11/28/18 code = U Cannab Scr) 5:35 AM) [facility] [id number] 11:35:00 Test Item Value Reference Range Interpretation Comments UA Sq Epi (test code = UA Sq Occasional /LPF Epi) [facility] [id number] 11:35:00 Test Item Value Reference Range Interpretation Comments UA Urobilinogen (test code = UA 1.0 0.1-1.0 Urobilinogen) [facility] [id number] 11:35:00 Test Item Value Reference Range Interpretation Comments UA Leuk Est (test Negative (11/28/18 5:35 code = UA Leuk Est) AM) [facility] [id number] 11:35:00 Test Item Value Reference Range Interpretation Comments UA Nitrite (test code Negative (11/28/18 5:35 = UA Nitrite) AM) [facility] [id number] 11:35:00 Test Item Value Reference Range Interpretation Comments UA Bacteria (test code = UA Few /HPF Bacteria) [facility] [id number] 11:35:00 Test Item Value Reference Range Interpretation Comments UA RBC (test code = 0-2 /HPF See_Comment [Automa bishop message] The UA RBC) system which ge nerated this result tra nsmitted reference range : <=2. The reference range was not used to interpr et this result as cornelia l/abnormal. [facility] AND [id number] 11:35:00 Test Item Value Reference Range Interpretation Comments UA WBC (test code = UA WBC) 0-2 /HPF [facility] AND [id number] 11:35:00 Test Item Value Reference Range Interpretation Comments UA Bili (test code = Negative *NA*(11/28/18 UA Bili) 5:35 AM) [facility] AND [id number] 11:35:00 Test Item Value Reference Range Interpretation Comments UA Glucose (test code Negative (11/28/18 5:35 = UA Glucose) AM) [facility] AND [id number] 11:35:00 Test Item Value Reference Range Interpretation Comments UA Ketones (test code Negative *NA*(11/28/18 = UA Ketones) 5:35 AM) [facility] AND [id number] 11:35:00 Test Item Value Reference Range Interpretation Comments UA Blood (test code = Trace *ABN*(11/28/18 UA Blood) 5:35 AM) [facility] AND [id number] 11:35:00 Test Item Value Reference Range Interpretation Comments UA Protein (test code Negative (11/28/18 5:35 = UA Protein) AM) [facility] AND [id number] 11:35:00 Test Item Value Reference Range Interpretation Comments UA Color (test code = Yellow *NA*(11/28/18 UA Color) 5:35 AM) [facility] AND [id number] 11:35:00 Test Item Value Reference Range Interpretation Comments UA Turbidity (test code = Clear (11/28/18 5:35 UA Turbidity) AM) [facility] AND [id number] 11:35:00 Test Item Value Reference Range Interpretation Comments UA Spec Grav (test code = UA Spec 1.020 1 Grav) [facility] AND [id number] 11:35:00 Test Item Value Reference Range Interpretation Comments UA pH (test code = UA pH) 5.5 1 5.0-8.0 [facility] [id number] 11:35:00 Test Item Value Reference Range Interpretation Comments U Amph Scr (test code Negative *NA*(11/28/18 = U Amph Scr) 5:35 AM) [facility] [id number] 11:35:00 Test Item Value Reference Range Interpretation Comments U Eve Scr (test code Negative *NA*(11/28/18 = U Eve Scr) 5:35 AM) [facility] [id number] 11:35:00 Test Item Value Reference Range Interpretation Comments UDS Note (test code = See Note (11/28/18 5:35 UDS Note) AM) [facility] [id number] 11:35:00 Test Item Value Reference Range Interpretation Comments U Opiate Scr (test Positive *ABN*(11/28/18 code = U Opiate Scr) 5:35 AM) [facility] [id number] 11:35:00 Test Item Value Reference Range Interpretation Comments U Phencyclidine Scr (test Negative code = U Phencyclidine *NA*(11/28/18 5:35 Scr) AM) [facility] [id number] 11:35:00 Test Item Value Reference Range Interpretation Comments U Benzodiaz Scr (test Negative *NA*(11/28/18 code = U Benzodiaz Scr) 5:35 AM) [facility] [id number] 11:35:00 Test Item Value Reference Range Interpretation Comments U Cocaine Scr (test Negative *NA*(11/28/18 code = U Cocaine Scr) 5:35 AM) [facility] [id number] 11:35:00 Test Item Value Reference Range Interpretation Comments U Cannab Scr (test Negative *NA*(11/28/18 code = U Cannab Scr) 5:35 AM) [facility] [id number] 11:35:00 Test Item Value Reference Range Interpretation Comments UA Sq Epi (test code = UA Sq Occasional /LPF Epi) [facility] [id number] 11:35:00 Test Item Value Reference Range Interpretation Comments UA Urobilinogen (test code = UA 1.0 0.1-1.0 Urobilinogen) [facility] [id number] 11:35:00 Test Item Value Reference Range Interpretation Comments UA Leuk Est (test Negative (11/28/18 5:35 code = UA Leuk Est) AM) [facility] AND [id number] 11:35:00 Test Item Value Reference Range Interpretation Comments UA Nitrite (test code Negative (11/28/18 5:35 = UA Nitrite) AM) [facility] AND [id number] 11:35:00 Test Item Value Reference Range Interpretation Comments UA Bacteria (test code = UA Few /HPF Bacteria) [facility] AND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
--- NOTE | 2023-07-22 19:59 | EDPHYS ---
Physician Documentation [facility] Name: Mariangel Estrella Age: 52 yrs Sex: Female : 1970 Arrival Date: 07/22/2023 Time: 18:17 Bed DX5 Private MD: Chiki Vanegas HPI: 07/22 21:37 This 52 yrs old Black Female presents to ER via Ambulatory with complaints of Knee Pain.snw 21:37 The patient presents with pain, that is acute. The complaints affect the right knee. snw Context: The problem was sustained at an unknown site, resulted from an unknown cause, the patient can partially bear weight, the patient is able to ambulate. Onset: The symptoms/episode began/occurred 3 week(s) ago, and became worse and became persistent. Associated signs and symptoms: The patient has no apparent associated signs or symptoms. Severity of symptoms: At their worst the symptoms were moderate. The patient has not experienced similar symptoms in the past. It is unknown whether or not the patient has recently seen a physician. 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 - Social history:: Smoking status: Patient denies any tobacco usage or history of. ROS: 21:34 Constitutional: Negative for fever, chills, and weight loss, Eyes: Negative for injury, snw pain, redness, and discharge, ENT: Negative for injury, pain, and discharge, Neck: Negative for injury, pain, and swelling, Cardiovascular: Negative for chest pain, palpitations, and edema, Respiratory: Negative for shortness of breath, cough, wheezing, and pleuritic chest pain, Abdomen/GI: Negative for abdominal pain, nausea, vomiting, diarrhea, and constipation, Back: Negative for injury and pain, : Negative for injury, bleeding, discharge, and swelling, MS/Extremity: Negative for injury and deformity, +right knee pain Skin: Negative for injury, rash, and discoloration, Neuro: Negative for headache, weakness, numbness, tingling, and seizure, Psych: Negative for depression, anxiety, suicide ideation, homicidal ideation, and hallucinations. Exam: 21:32 Constitutional: This is a well developed, well nourished patient who is awake, alert, snw and in no acute distress. Head/Face: Normocephalic, atraumatic. Eyes: Pupils equal round and reactive to light, extra-ocular motions intact. Lids and lashes normal. Conjunctiva and sclera are non-icteric and not injected. Cornea within normal limits. Periorbital areas with no swelling, redness, or edema. ENT: Nares patent. No nasal discharge, no septal abnormalities noted. Tympanic membranes are normal and external auditory canals are clear. Oropharynx with no redness, swelling, or masses, exudates, or evidence of obstruction, uvula midline. Mucous membranes moist. Neck: Trachea midline, no thyromegaly or masses palpated, and no cervical lymphadenopathy. Supple, full range of motion without nuchal rigidity, or vertebral point tenderness. No Meningismus. Chest/axilla: Normal chest wall appearance and motion. Nontender with no deformity. No lesions are appreciated. Cardiovascular: Regular rate and rhythm with a normal S1 and S2. No gallops, murmurs, or rubs. Normal PMI, no JVD. No pulse deficits. Respiratory: Lungs have equal breath sounds bilaterally, clear to auscultation and percussion. No rales, rhonchi or wheezes noted. No increased work of breathing, no retractions or nasal flaring. Abdomen/GI: Soft, non-tender, with normal bowel sounds. No distension or tympany. No guarding or rebound. No evidence of tenderness throughout. Back: No spinal tenderness. No costovertebral tenderness. Full range of motion. Skin: Warm, dry with normal turgor. Normal color with no rashes, no lesions, and no evidence of cellulitis. Neuro: Awake and alert, GCS 15, oriented to person, place, time, and situation. Cranial nerves II-XII grossly intact. Motor strength 5/5 in all extremities. Sensory grossly intact. Cerebellar exam normal. Normal gait. Psych: Awake, alert, with orientation to person, place and time. Behavior, mood, and affect are within normal limits. 21:32 Musculoskeletal/extremity: Extremities: grossly normal except: noted in the right knee: pain, tenderness, ROM: limited active range of motion due to pain, in the right knee, Circulation is intact in all extremities. Sensation intact. Vital Signs: 18:29 BP 156 / 81; Pulse 77; Resp 18; Temp 98.1; Pulse Ox 100% ; Weight 88.9 kg; Pain 0/10; ap3 18:29 Pain Scale: Adult ap3 MDM: 18:38 Patient medically screened. snw 21:33 Differential diagnosis: contusion, sprain, strain. Data reviewed: vital signs, nurses snw notes, radiologic studies. I considered the following discharge prescriptions or medication management in the emergency department Medications were administered in the Emergency Department. See MAR. Counseling: I had a detailed discussion with the patient and/or guardian regarding the historical points, exam findings, and any diagnostic results supporting the discharge/admit diagnosis, the need for outpatient follow up, to return to the emergency department if symptoms worsen or persist or if there are any questions or concerns that arise at home. Response to treatment: the patient's symptoms have mildly improved after treatment. Special discussion: Based on the history and exam findings, there is no indication for further emergent testing or inpatient evaluation. I discussed with the patient/guardian the need to see the orthopedic surgeon for further evaluation of the symptoms. 07/22 19:58 Order name: Knee Immobilizer; Complete Time: 20:25 snw Administered Medications: 20:25 Drug: Ketorolac IM 30 mg Route: IM; Site: left deltoid; jb4 Disposition Summary: 07/22/23 19:58 Discharge Ordered Location: Home snw Condition: Stable snw Diagnosis - Pain in right knee snw - Other bursitis of knee, right knee snw Followup: snw - With: Emergency Department - When: As needed - Reason: Worsening of condition Followup: snw - With: Private Physician - When: 2 - 3 days - Reason: Recheck today's complaints, Continuance of care, Re-evaluation by your physician Discharge Instructions: - Discharge Summary Sheet snw - Bursitis snw - How to Use a Knee Brace snw - Musculoskeletal Pain snw - Acute Knee Pain, Adult snw - Heat Therapy snw Forms: - Work release form snw - Medication Reconciliation Form snw - Thank You Letter snw - Antibiotic Education snw - Prescription Opioid Use snw - Patient Portal Instructions snw - Leadership Thank You Letter snw Prescriptions: - Mobic 7.5 mg Oral Tablet - take 1 tablet by ORAL route once daily take with food; 20 tablet; Refills: 0, snw Product Selection Permitted - orphenadrine citrate 100 mg Oral Tablet Sustained Release - take 1 tablet by ORAL route 2 times per day As needed; 20 tablet; Refills: 0, snw Product Selection Permitted Signatures: Odilia Slater FNP-C SAHRA-Ousmane Enriquez, RN RN jb4 Charley Hernandez RN RN ap3
--- NOTE | 2023-07-22 19:59 | ER ---
Nurse's Notes [facility] Name: Mariangel Estrella Age: 52 yrs Sex: Female : 1970 Arrival Date: 07/22/2023 Time: 18:17 Bed DX5 Private MD: Diagnosis: Pain in right knee;Other bursitis of knee, right knee Presentation: 07/22 18:27 Chief complaint: Patient states: her right knee has been hurting for approx 2 weeks, ap3 and it hasn't been getting any better. patient states the pain is worse when she bends her knee but nothing makes the pain better. Coronavirus screen: At this time, the client does not indicate any symptoms associated with coronavirus-19. Ebola Screen: No symptoms or risks identified at this time. Initial Sepsis Screen: Does the patient meet any 2 criteria? No. Patient's initial sepsis screen is negative. Does the patient have a suspected source of infection? No. Patient's initial sepsis screen is negative. Risk Assessment: Do you want to hurt yourself or someone else? Patient reports no desire to harm self or others. Onset of symptoms was July 06, 2023. 18:27 Method Of Arrival: Ambulatory ap3 18:27 Acuity: MARGARET 4 ap3 Triage Assessment: 18:29 General: Appears in no apparent distress. Behavior is calm, cooperative, appropriate ap3 for age. Pain: Complains of pain in right knee Pain currently is 0 out of 10 on a pain scale. at worst was 8 out of 10 on a pain scale. Pain began gradually. Neuro: Level of Consciousness is awake, alert, obeys commands, Oriented to person, place, time, situation, Appropriate for age Gait is steady. Respiratory: Airway is patent Respiratory effort is even, unlabored, Respiratory pattern is regular, symmetrical. 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 - Social history:: Smoking status: Patient denies any tobacco usage or history of. Screenin:30 [facility] ED Fall Risk Assessment (Adult) History of falling in the last 3 months, ap3 including since admission No falls in past 3 months (0 pts). Abuse screen: Denies threats or abuse. Nutritional screening: No deficits noted. Tuberculosis screening: No symptoms or risk factors identified. Assessment: 20:34 Reassessment: Patient appears in no apparent distress at this time. Patient and/or jb4 family updated on plan of care and expected duration. Pain level reassessed. Patient is alert, oriented x 3, equal unlabored respirations, skin warm/dry/pink. Vital Signs: 18:29 BP 156 / 81; Pulse 77; Resp 18; Temp 98.1; Pulse Ox 100% ; Weight 88.9 kg; Pain 0/10; ap3 18:29 Pain Scale: Adult ap3 ED Course: 18:19 Patient arrived in ED. mr 18:19 Odilia Slater FNP-C [facility]. snw 18:19 Chiki Cabrera MD is Attending Physician. snw 18:28 Triage completed. ap3 18:30 Arm band placed on right wrist. ap3 20:34 Patient has correct armband on for positive identification. Bed in low position. Call jb4 light in reach. Side rails up X 1. 20:34 No provider procedures requiring assistance completed. Patient did not have IV access jb4 during this emergency room visit. Administered Medications: 20:25 Drug: Ketorolac IM 30 mg Route: IM; Site: left deltoid; jb4 Medication: 18:30 VIS not applicable for this client. ap3 Outcome: 19:58 Discharge ordered by . snw 20:34 Discharged to home ambulatory. jb4 20:34 Condition: stable 20:34 Discharge instructions given to patient, Instructed on discharge instructions, follow up and referral plans. no drinking with medication, no driving heavy equipment, medication usage, Demonstrated understanding of instructions, follow-up care, medications, Prescriptions given X 2. 20:35 Patient left the ED. jb4 Signatures: Odilia Slater FNP-C BUSINESS ANALYSIS ANALYST-Jelena Mi Guzmán Ousmane Rai RN RN jb4 Charley Hernandez RN RN ap3
[2023-07-22] MEDS ORDERED: KETOROLAC 30 MG/ML INJ ONE (20:28)
[2023-07-22 21:06] VITALS: BP 156/81; TEMP 98.1; O2SAT 100
== END 2023-07-22 20:35 | disposition home or self-care (01) ==
LOC: ER 18:17
DX: M71.561 Other bursitis, not elsewhere classified, right knee (principal)
CPT/HCPCS: 96372; 99284

== ENCOUNTER 2024-10-19 08:59 | Emergency (ER) | payer OTHER ==
[2024-10-19 09:47] LABS: Specific Gravity 1.022 (1.005-1.030); Sqamous Epithelial <5 /HPF (None Seen); Urine Bacteria <20 /HPF (<20); Urine Bilirubin NEGATIVE (Negative); Urine Blood 1+ (Negative); Urine Clarity Extremely Turbid (Clear); Urine Color Light-Yellow (Yellow); Urine Crystals Unidentified Few /HPF (None Seen); Urine Culture Reflex Order REFLEXED; Urine Glucose 4+ (Over) (Negative); Urine Ketones NEGATIVE (Negative); Urine Microscopic Reflex YN ORDER UMIC; Urine Nitrite NEGATIVE (Negative); Urine Protein 1+ (Negative); Urine RBC 21-50 /HPF (None Seen); Urine Urobilinogen Normal (Normal); Urine WBC >50 /HPF (<5); Urine WBC Clump Occasional /HPF (None Seen); Urine Yeast (Budding) Occasional /HPF (None Seen); Urine pH 5.5 (5.0-7.0)
--- NOTE | 2024-10-19 10:24 | ER ---
Nurse's Notes [facility] Name: Mariangel Estrella Age: 54 yrs Sex: Female : 1970 Arrival Date: 10/19/2024 Time: 08:59 Bed DX3 Private MD: Diagnosis: Urinary tract infection Presentation: 10/19 09:22 Chief complaint: Patient states: burning with urination and frequency that began x 1 ss week. Coronavirus screen: Client denies travel out of the [place] in the last 14 days. Ebola Screen: Patient denies exposure to infectious person. Patient denies travel to an Ebola-affected area in the 21 days before illness onset. Initial Sepsis Screen: Does the patient meet any 2 criteria? No. Patient's initial sepsis screen is negative. Does the patient have a suspected source of infection? No. Patient's initial sepsis screen is negative. Risk Assessment: Do you want to hurt yourself or someone else? Patient reports no desire to harm self or others. Onset of symptoms was October 2024. 09:22 Method Of Arrival: Ambulatory ss 09:22 Acuity: MARGARET 4 ss Historical: - Allergies: 09:23 No Known Allergies; ss - PMHx: 09:23 diabetes mellitus; Hypercholesterolemia; Hypertensive disorder; ss - Immunization history:: Client reports receiving the 2nd dose of the Covid vaccine. - Infectious Disease History:: Denies. - Social history:: Smoking status: Patient denies any tobacco usage or history of. Screenin:32 Abuse screen: Denies threats or abuse. Denies injuries from another. Nutritional ss screening: No deficits noted. Tuberculosis screening: Never had TB. Assessment: 10:32 Reassessment:. General: Appears in no apparent distress. comfortable, Behavior is calm, ss cooperative. Neuro: Level of Consciousness is awake, alert. Respiratory: Airway is patent Respiratory effort is even, unlabored, Respiratory pattern is regular, symmetrical. GI: Patient currently denies diarrhea, nausea, vomiting. Derm: Skin is intact, is healthy with good turgor, Skin is pink, warm \T\ dry. normal. Vital Signs: 09:22 BP 130 / 95; Pulse 75; Resp 15; Temp 97.8(TE); Pulse Ox 100% on R/A; Weight 57.61 kg; ss Height 5 ft. 3 in. ; Pain 0/10; 09:22 Body Mass Index 22.50 (57.61 kg, 160.02 cm) ss 09:22 Pain Scale: Adult ss ED Course: 09:02 Patient arrived in ED. im 09:11 Alessandra Vazquez MD is Attending Physician. sp3 09:23 Triage completed. ss 09:23 Arm band placed on right wrist. ss 09:38 Urinalysis w/ reflexes Sent. ss 10:32 Patient has correct armband on for positive identification. ss 10:32 No provider procedures requiring assistance completed. Patient did not have IV access ss during this emergency room visit. Administered Medications: No medications were administered Medication: 10:32 VIS not applicable for this client. ss Outcome: 10:24 Discharge ordered by . sp3 10:32 Discharged to home ambulatory, ss 10:32 Condition: good 10:32 Discharge instructions given to patient, Instructed on discharge instructions, follow up and referral plans. medication usage, Demonstrated understanding of instructions, follow-up care, medications, Prescriptions given X 1, 10:35 Patient left the ED. ss Signatures: Jodi Crowder, RN RN Alessandra Vazquez MD MD sp3 Irene Rosales im
--- NOTE | 2024-10-19 10:24 | EDPHYS ---
Physician Documentation [facility] Name: Mariangel Estrella Age: 54 yrs Sex: Female : 1970 Arrival Date: 10/19/2024 Time: 08:59 Bed DX3 Private MD: ED Physician Alessandra Vazquez HPI: 10/19 10:21 This 54 yrs old Black Female presents to ER via Ambulatory with complaints of Pain With sp3 Urination. 10:21 54-year-old female with history of diabetes, hyperlipidemia, hypertension presents with sp3 dysuria x 2 days without any associated pain. 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 Historical: - Allergies: 09:23 No Known Allergies; ss - PMHx: 09:23 diabetes mellitus; Hypercholesterolemia; Hypertensive disorder; ss - Immunization history:: Client reports receiving the 2nd dose of the Covid vaccine. - Infectious Disease History:: Denies. - Social history:: Smoking status: Patient denies any tobacco usage or history of. ROS: 10:22 Constitutional: Negative for fever, chills, and weight loss, Eyes: Negative for injury, sp3 pain, redness, and discharge, ENT: Negative for injury, pain, and discharge, Neck: Negative for injury, pain, and swelling, Cardiovascular: Negative for chest pain, palpitations, and edema, Respiratory: Negative for shortness of breath, cough, wheezing, and pleuritic chest pain, Abdomen/GI: Negative for abdominal pain, nausea, vomiting, diarrhea, and constipation, Back: Negative for injury and pain, MS/Extremity: Negative for injury and deformity, Skin: Negative for injury, rash, and discoloration, Neuro: Negative for headache, weakness, numbness, tingling, and seizure, Psych: Negative for depression, anxiety, suicide ideation, homicidal ideation, and hallucinations, Allergy/Immunology: Negative for hives, rash, and allergies, Endocrine: Negative for neck swelling, polydipsia, polyuria, polyphagia, and marked weight changes, Hematologic/Lymphatic: Negative for swollen nodes, abnormal bleeding, and unusual bruising, 10:22 All other systems are negative, Exam: 10:22 Constitutional: This is a well developed, well nourished patient who is awake, alert, sp3 and in no acute distress. Head/Face: Normocephalic, atraumatic. Eyes: Pupils equal round and reactive to light, extra-ocular motions intact. Lids and lashes normal. Conjunctiva and sclera are non-icteric and not injected. Cornea within normal limits. Periorbital areas with no swelling, redness, or edema. Neck: Trachea midline, no thyromegaly or masses palpated, and no cervical lymphadenopathy. Supple, full range of motion without nuchal rigidity, or vertebral point tenderness. No Meningismus. Chest/axilla: Normal chest wall appearance and motion. Nontender with no deformity. No lesions are appreciated. Cardiovascular: Regular rate and rhythm with a normal S1 and S2. No gallops, murmurs, or rubs. Normal PMI, no JVD. No pulse deficits. Respiratory: Lungs have equal breath sounds bilaterally, clear to auscultation and percussion. No rales, rhonchi or wheezes noted. No increased work of breathing, no retractions or nasal flaring. Abdomen/GI: Soft, non-tender, with normal bowel sounds. No distension or tympany. No guarding or rebound. No evidence of tenderness throughout. Back: No spinal tenderness. No costovertebral tenderness. Full range of motion. Skin: Warm, dry with normal turgor. Normal color with no rashes, no lesions, and no evidence of cellulitis. MS/ Extremity: Pulses equal, no cyanosis. Neurovascular intact. Full, normal range of motion. Neuro: Awake and alert, GCS 15, oriented to person, place, time, and situation. Cranial nerves II-XII grossly intact. Motor strength 5/5 in all extremities. Sensory grossly intact. Cerebellar exam normal. Normal gait. Psych: Awake, alert, with orientation to person, place and time. Behavior, mood, and affect are within normal limits. Vital Signs: 09:22 BP 130 / 95; Pulse 75; Resp 15; Temp 97.8(TE); Pulse Ox 100% on R/A; Weight 57.61 kg; ss Height 5 ft. 3 in. ; Pain 0/10; 09:22 Body Mass Index 22.50 (57.61 kg, 160.02 cm) 09:22 Pain Scale: Adult ss MDM: 09:11 Medical Screening Exam initiated sp3 10:23 Data reviewed: vital signs, nurses notes, lab test result(s). ED course: 54-year-old sp3 female presents with dysuria without abdominal pain. Eventual diagnosis includes UTI/pyelonephritis spectrum. UA demonstrates clear UA however clinically I do not believe patient has pyelonephritis. Patient also ruled out clinically for kidney stone, appendicitis, acute abdomen, or any other critical process including sepsis and shock. Will place on Bactrim and discharged with PCP follow-up as needed.. 10/19 09:31 Order name: Urinalysis w/ reflexes; Complete Time: 09:49 ss 10/19 09:51 Order name: Urine Culture EDMS Administered Medications: No medications were administered Disposition Summary: 10/19/24 10:24 Discharge Ordered Notes: Location: Home sp3 Condition: Stable sp3 Diagnosis - Urinary tract infection sp3 Followup: sp3 - With: Private Physician - When: Upon discharge from the Emergency Department - Reason: Continuance of care Discharge Instructions: - Discharge Summary Sheet sp3 - Urinary Tract Infection, Adult sp3 Forms: - Medication Reconciliation Form sp3 - Antibiotic Education sp3 - Prescription Opioid Use sp3 - Patient Portal Instructions sp3 - Leadership Thank You Letter sp3 Prescriptions: - Bactrim DS 800-160 mg Oral tablet - take 1 tablet ORAL route every 12 hours for 5 days; 10 tablet; Refills: 0, sp3 Product Selection Permitted 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
[2024-10-19 10:41] VITALS: BP 130/95; TEMP 97.8; O2SAT 100
== END 2024-10-19 10:35 | disposition home or self-care (01) ==
LOC: ER 08:59
DX: N39.0 Urinary tract infection, site not specified (principal)
CPT/HCPCS: 81001; 87077; 87086; 87088; 87186; 99283